=== PATIENT | female | born 1995 | race Caucasian/White ===

== ENCOUNTER 2016-12-10 13:32 | Emergency (ER) | payer MEDICAID, OTHER ==
[2016-12-10 13:35] VITALS: TEMP 98
--- NOTE | 2016-12-10 13:46 | C.PDOC ---
History Of Present Illness 21-year-old female, presents to the emergency department with complaints of nausea, non-bloody/non-bilious vomiting and non-bloody/watery diarrhea (several episodes in a day) for the past week, that is associated lower abdominal discomfort x5 days. Additionally, patient reports mild vaginal spotting on and 12/07, which resolved. She denies recent travel or ABX use. Time Seen by Provider: 12/10/16 13:37 Chief Complaint (Nursing): Abdominal Pain History Per: Patient History/Exam Limitations: no limitations Onset/Duration Of Symptoms: Days Current Symptoms Are (Timing): Still Present Severity: Moderate Associated Symptoms: Nausea, Vomiting, Diarrhea Past Medical History Reviewed: Historical Data, Nursing Documentation, Vital Signs Vital Signs: Last Vital Signs Temp 98 F 12/10/16 13:34 Pulse 64 12/10/16 15:20 Resp 16 12/10/16 15:20 BP 118/75 12/10/16 15:20 Pulse Ox 97 12/10/16 15:20 - Medical History PMH: Asthma Family History: States: No Known Family Hx - Social History Hx Tobacco Use: No Hx Alcohol Use: No Hx Substance Use: No - Immunization History Hx Tetanus Toxoid Vaccination: Yes Hx Influenza Vaccination: Yes Hx Pneumococcal Vaccination: Yes Review Of Systems Except As Marked, All Systems Reviewed And Found Negative. () Constitutional: Negative for: Fever, Chills Cardiovascular: Negative for: Chest Pain Respiratory: Negative for: Shortness of Breath Gastrointestinal: Positive for: Nausea, Vomiting, Abdominal Pain, Diarrhea Genitourinary: Positive for: Vaginal Bleeding Neurological: Negative for: Weakness, Numbness, Headache, Dizziness Physical Exam - Physical Exam Appears: Non-toxic, No Acute Distress Skin: Warm, Dry, No Rash Nose: Normal Oral Mucosa: Moist Lips: Normal Appearing Neck: Normal ROM Cardiovascular: Rhythm Regular, No Murmur Respiratory: Normal Breath Sounds, No Accessory Muscle Use Gastrointestinal/Abdominal: Soft, Tenderness (Diffuse, lower) Extremity: Normal ROM Neurological/Psych: Oriented x3, Normal Speech ED Course And Treatment - Laboratory Results Result Diagrams: 12/10/16 14:15 12/10/16 14:15 O2 Sat by Pulse Oximetry: 95 Medical Decision Making Medical Decision Makinpm the pt reports feeling "much better." she is comfortable w dc. follow up and return prec advised. Disposition - Disposition Disposition: HOME/ ROUTINE Disposition Time: 15:24 Condition: IMPROVED Forms: [facility] ([facility]) - Clinical Impression Clinical Impression: Gastroenteritis - Scribe Statement The provider has reviewed the documentation as recorded by the Scribe (Willard Meza) All medical record entries made by the Scribe were at my direction and personally dictated by me. I have reviewed the chart and agree that the record accurately reflects my personal performance of the history, physical exam, medical decision making, and the department course for this patient. I have also personally directed, reviewed, and agree with the discharge instructions and disposition.
[2016-12-10 13:57] LABS: URINE BILIRUBIN NEGATIVE (NEGATIVE); URINE BLOOD NEGATIVE (NEGATIVE); URINE COLOR Yellow (YELLOW); URINE GLUCOSE (UA) NORMAL (Normal); URINE KETONE NEGATIVE (NEGATIVE); URINE LEUKOCYTE ESTERASE NEG Leu/uL (Negative); URINE PROTEIN NEGATIVE (NEGATIVE); URINE UROBILINOGEN NORMAL mg/dL (0.2-1.0); WBC URINE 1 /hpf (0-5)
[2016-12-10] MEDS ORDERED: Sodium Chloride 0.9% 1,000 ML IV ONE (14:07)
[2016-12-10] MEDS ORDERED: Sodium Chloride 0.9% 1,000 ML ONE (14:12)
[2016-12-10 14:27] LABS: BASO % 0.4 % (0.0-2.0); EOS % 0.5 % (0.0-4.0); HEMATOCRIT 41.8 % (34.0-47.0); LYMPH # 1.5 K/uL (1.0-4.3); LYMPH % 35.1 % (20.0-40.0); MEAN CELL VOLUME 89.7 fL (81.0-99.0); MEAN CORPUSCULAR HEMOGLOBIN 30.7 pg (27.0-31.0); MEAN CORPUSCULAR HGB CONC 34.2 g/dL (33.0-37.0); MEAN PLATELET VOLUME 10.7 fL (7.2-11.7); MONO # 0.3 K/uL (0.0-0.8); MONO % 7.2 % (0.0-10.0); NRBC % 0.1 % (0.0-2.0); RED CELL DISTRIBUTION WIDTH 13.4 % (11.5-14.5); WHITE BLOOD COUNT 4.2 K/uL (4.8-10.8)
[2016-12-10 14:30] LABS: CHLORIDE 100 mmol/L (98-107); POTASSIUM 3.8 mmol/L (3.6-5.2); SODIUM 141 mmol/L (132-148)
[2016-12-10 14:32] LABS: GFR AFRICAN-AMERICAN > 60
[2016-12-10 14:33] LABS: ALB/GLOB RATIO 1.5 (1.0-2.1); ALKALINE PHOSPHATASE 121 U/L (38-126); ALT/SGPT 27 U/L (9-52); AST/SGOT 21 U/L (14-36); BILIRUBIN,TOTAL 0.7 mg/dL (0.2-1.3); BLOOD UREA NITROGEN 7 mg/dL (7-17); CARBON DIOXIDE 24 mmol/L (22-30); GLUCOSE,RANDOM 90 mg/dL (65-105); TOTAL PROTEIN 7.2 g/dL (6.3-8.3)
[2016-12-10 14:34] LABS: CALCIUM 9.1 mg/dl (8.6-10.4)
[2016-12-10 15:21] VITALS: BP 118/75; PULSE 64; RESP 16
[2016-12-10 15:25] VITALS: O2SAT 95
== END 2016-12-10 15:31 | disposition home or self-care (01) ==
LOC: C.ER 13:32
DX: K52.9 Noninfective gastroenteritis and colitis, unspecified (principal)
CPT/HCPCS: 80053; 81001; 84703; 85025; 96361; 96374; 99284; J2405; J7040

== ENCOUNTER 2017-10-21 23:37 | Emergency (ER) | payer MEDICAID, OTHER ==
[2017-10-21 23:42] VITALS: RESP 18; O2SAT 98
[2017-10-21] MEDS ORDERED: Sodium Chloride 0.9% 1,000 ML IV STA (23:47)
[2017-10-22] MEDS ORDERED: Sodium Chloride 0.9% 1,000 ML ONE (00:07)
[2017-10-22 00:10] LABS: SQUAMOUS EPITHIAL 2 /hpf (0-5); URINE BILIRUBIN NEGATIVE (NEGATIVE); URINE BLOOD NEGATIVE (NEGATIVE); URINE CLARITY Clear (Clear); URINE COLOR Yellow (YELLOW); URINE GLUCOSE (UA) NORMAL (Normal); URINE LEUKOCYTE ESTERASE NEG Leu/uL (Negative); URINE PROTEIN NEGATIVE (NEGATIVE); URINE UROBILINOGEN NORMAL mg/dL (0.2-1.0)
[2017-10-22 00:24] LABS: HCG,QUALITATIVE URINE POSITIVE (NEGATIVE)
[2017-10-22 00:27] LABS: BASO % 0.4 % (0.0-2.0); EOS # 0.1 K/uL (0.0-0.7); EOS % 0.8 % (0.0-4.0); HEMOGLOBIN 13.8 g/dL (11.0-16.0); LYMPH # 2.7 K/uL (1.0-4.3); LYMPH % 33.1 % (20.0-40.0); MEAN CORPUSCULAR HGB CONC 34.9 g/dL (33.0-37.0); MEAN PLATELET VOLUME 10.4 fL (7.2-11.7); MONO # 0.7 K/uL (0.0-0.8); MONO % 8.4 % (0.0-10.0); NEUT # 4.7 K/uL (1.8-7.0); NEUT % 57.3 % (50.0-75.0); RBC 4.44 Mil/uL (3.80-5.20); RED CELL DISTRIBUTION WIDTH 12.8 % (11.5-14.5); WHITE BLOOD COUNT 8.2 K/uL (4.8-10.8)
[2017-10-22 00:49] LABS: ALB/GLOB RATIO 1.2 (1.0-2.1); ALT/SGPT 29 U/L (9-52); AST/SGOT 23 U/L (14-36); BLOOD UREA NITROGEN 11 mg/dL (7-17); CALCIUM 9.5 mg/dl (8.6-10.4); GFR AFRICAN-AMERICAN > 60; GFR NON-AFRICAN AMERICAN > 60; LIPASE 74 U/L (23-300)
--- NOTE | 2017-10-22 00:59 | C.PDOC ---
History Of Present Illness 22 y/o F c no PMHx p/w nausea and vomiting x 4 days and lower abdominal pain which is crampy. Denies fever, chills, dysuria, vaginal bleeding. LMP 20 days ago, shorter than usual. Time Seen by Provider: 10/21/17 23:43 Chief Complaint (Nursing): GI Problem Past Medical History Vital Signs: Last Vital Signs Temp 98.2 F 10/21/17 23:40 Pulse 77 10/21/17 23:40 Resp 18 10/21/17 23:40 BP 117/78 10/21/17 23:40 Pulse Ox 98 10/21/17 23:40 - Medical History PMH: Asthma Family History: States: Unknown Family Hx - Social History Hx Tobacco Use: No Hx Alcohol Use: No Hx Substance Use: No - Immunization History Hx Tetanus Toxoid Vaccination: Yes Hx Influenza Vaccination: Yes Hx Pneumococcal Vaccination: Yes Review Of Systems Except As Marked, All Systems Reviewed And Found Negative. Constitutional: Negative for: Fever Respiratory: Negative for: Shortness of Breath Physical Exam - Physical Exam Additional Physical Exam Comments: Gen: NAD Head: NC/AT Eyes: PERRL ENT: MMM Neck: SUpple Chest: No tenderness CV: REgular rate Lung: CTA b/l Abd: RUQ and suprapubic tenderness Extremities: No edema Back: No CVA tenderness Skin: No rash Neuro: Alert, no focal deficit ED Course And Treatment - Laboratory Results Result Diagrams: 10/22/17 00:09 10/22/17 00:09 O2 Sat by Pulse Oximetry: 98 Medical Decision Making Medical Decision Making: Upreg positive. Added hcg quant, Rh, and US. Will sign out to ED night team. Disposition - Disposition Disposition Time: 00:59 Condition: STABLE - Clinical Impression Clinical Impression:
[2017-10-22 02:37] VITALS: BP 107/71; PULSE 60; TEMP 98.8
--- NOTE | 2017-10-22 03:24 | US ---
EXAM: US Abdomen Complete CLINICAL HISTORY: 22 years old, female; Pain; Abdominal pain; ; Additional info: Abdominal pain, vomiting TECHNIQUE: Real-time ultrasound of the abdomen (complete) with image documentation. COMPARISON: No relevant prior studies available. FINDINGS: Liver: Unremarkable measuring 14.4 cm. No mass. No intrahepatic bile duct dilation. Gallbladder: Unremarkable. No gallstones. Normal gallbladder wall thickness measuring 2 mm. Negative Del Rosario's sign. Common bile duct: Unremarkable as visualized measuring 4 mm. No stones. No dilation. Pancreas: Unremarkable as visualized. The tail is not well-visualized. Kidneys: Unremarkable. The right kidney measures 10.8 cm and the left kidney measures 10.9 cm. No stones. No solid mass. No hydronephrosis. Spleen: Unremarkable measuring 7.7 cm. No splenomegaly. Aorta: Unremarkable. No aneurysm. Inferior vena cava: Unremarkable. IMPRESSION: Normal abdominal ultrasound.
--- NOTE | 2017-10-22 03:31 | US ---
EXAM: US , Transvaginal CLINICAL HISTORY: 22 years old, female; Signs and symptoms; Lmp or gestational age (in weeks): 08/30/17; Antepartum complications; Other: Vomitting; ; Additional info: Abd pain in , assess cervix TECHNIQUE: Real-time transvaginal obstetrical ultrasound of the maternal pelvis and a first trimester with image documentation. Transvaginal imaging was used for better evaluation of the fetus and adnexa. COMPARISON: US - OB TRANSVAGINAL 2015-08-04 14:04 FINDINGS: Gestation: The uterus contains a normal gestational sac. A normal yolk sac is identified. A normal pole is identified. Embryonic/ cardiac activity is identified, at a rate of 119 beats per minute. Measurements correlate with a mean gestational age of 6 weeks 5 days. The estimated date of delivery is 06/12/2018. Placenta/amniotic fluid: Cannot be adequately evaluated due to the early gestational age. Uterus/cervix: Unremarkable measuring 7.0 x 3.8 x 5.3 cm. No myometrial mass. Ovaries: Unremarkable. The right ovary measures 3.8 x 2.4 x 3.1 cm. There is a cyst in the right ovary measuring 2.1 x 1.7 19.1 cm consistent with a corpus luteal cyst. The left ovary measures 3.2 x 2.3 x 2.5 cm. Free fluid: There is a small amount of free pelvic fluid present. IMPRESSION: Live intrauterine , with no evidence of early complications. Right ovarian cyst most likely a corpus luteal cyst. Small physiologic pelvic free fluid.
== END 2017-10-22 03:51 | disposition home or self-care (01) ==
LOC: C.ER 23:37
DX: O21.0 Mild hyperemesis gravidarum (principal); Z3A.01 Less than 8 weeks gestation of pregnancy
CPT/HCPCS: 76700; 76817; 80053; 81001; 83690; 84702; 84703; 85025; 86850; 86900; 87086; 96361; 96374; 99284; J2405; J7030

== ENCOUNTER 2018-03-05 00:23 | Emergency (ER) | payer MEDICAID, OTHER ==
[2018-03-05 00:43] VITALS: BMI 26.6
[2018-03-05 01:24] LABS: SQUAMOUS EPITHIAL 1 /hpf (0-5); URINE BILIRUBIN NEGATIVE (NEGATIVE); URINE BLOOD NEGATIVE (NEGATIVE); URINE CLARITY Clear (Clear); URINE COLOR Yellow (YELLOW); URINE GLUCOSE (UA) NORMAL (Normal); URINE LEUKOCYTE ESTERASE NEG Leu/uL (Negative); URINE PROTEIN NEGATIVE (NEGATIVE); URINE UROBILINOGEN NORMAL mg/dL (0.2-1.0)
--- NOTE | 2018-03-05 02:14 | OBHP ---
Datetime: 03/05/2018 01:59 IP Adm Impression: , intrauterine ; Intact Membranes IP Admit Plan: Observation/Evaluation Admit Comment, IP Provider: 23 yo female with an IUP at 27 weeks and presents with intermit tent low abdominal and suprapubic pain that worsens whe moving around, changing positions or standing for long periods of time. Denies any urinary or bowel complaints and admits to drinking water. Adequ ate FM and no LOF, VB or Vaginal discharge. PMHx Negative PSHx 2 TOP's Allergies: Seafood Medications PNV Social Hx Negative x 3 A/P 27 weeks IUP Suprapubic intermittent pain worsen with movement. Presently 2-3/10. Most likely Round Ligament pa ins No contractions. Monitoring reassuring for GA NST Reactive UA WNL Pt reassured and advised to increase po water intake Recommend to rest for a couple of days and note for work given to stay off work Also advised to pelvic rest for few days Will f/up at [facility] for PNC Pelvic Type - PN: Adequate Extremities - PN: Normal Abdomen - PN: Normal Back - PN: Normal Breast - PN: Not Done Lungs - PN: Normal Heart - PN: Normal Thyroid - PN: Normal Neurologic - PN: Normal HEENT - PN: Normal General - PN: Normal Presentation-Admit: Vertex FHR - Baseline A Provider: 140 Membranes, Provider: Intact Contraction Comments Provider: None Gestation - Est Wks by US: 27.0 IP Hx Assessment: No PNC records available EGA AdmitDate IP: 27.0 Vital Signs Provider: Reviewed; Within Normal Limits IP Chief Complaint: Maternal discomfort NICHD Variability Prov Fetus A: Moderate 6-25bpm NICHD Accel Fetus A IP Provider: 10X10 NICHD Decel Fetus A IP Provider: None Dilatation, Provider: 0 Effacement, Provider: 0 Station, Provider: high Genitourinary Exam: Normal DTRs - PN: Normal
--- NOTE | 2018-03-05 02:16 | OBDCSUM ---
Datetime: 03/05/2018 02:06 Discharged to, Provider: Home Follow up at, Provider: [facility] Disch Instr Activity: Normal activity Disch Instr Diet: Regular Discharge Instructions, Provider: Routine instructions given Discharge Time: 03/05/2018 02:06 Follow up in weeks, Provider: [facility] Disch Referrals: None Disch Activity Restrictions: No exercising; No lifting; Minimize walking; Minimize stair-climbing; N o sexual activity; Nothing in vagina - Rivanna, tampons, douche Discharge Comment, Provider: 23 yo female with an IUP at 27 weeks and presents with intermi ttent low abdominal and suprapubic pain that worsens whe moving around, changing positions or standin g for long periods of time. Denies any urinary or bowel complaints and admits to drinking water. Adeq uate FM and no LOF, VB or Vaginal discharge. PMHx Negative PSHx 2 TOP's Allergies: Seafood Medications PNV Social Hx Negative x 3 A/P 27 weeks IUP Suprapubic intermittent pain worsen with movement. Presently 2-3/10. Most likely Round Ligament pa ins No contractions. Monitoring reassuring for GA NST Reactive UA WNL Pt reassured and advised to increase po water intake Recommend to rest for a couple of days and note for work given to stay off work Also advised to pelvic rest for few days May take Motrin 600 mgs po Q 6 hrs prn pain Will f/up at [facility] for PNC Discharge home in Stable and Satisfactory condition Discharge Diagnosis Prov Other: Round Ligament pains
[2018-03-05 06:30] VITALS: BP 115/66; PULSE 77; RESP 18; TEMP 98; O2SAT 97
== END 2018-03-05 02:15 | disposition home or self-care (01) ==
LOC: C.EROB 00:23
DX: O26.892 Other specified pregnancy related conditions, second trimester (principal); R10.30 Lower abdominal pain, unspecified; Z3A.27 27 weeks gestation of pregnancy